=== PATIENT | female | born 1995 | race Caucasian/White ===

== ENCOUNTER 2018-06-11 12:19 | Emergency (ER) | payer OTHER ==
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
[2018-06-11 13:29] VITALS: BP 132/82
== END 2018-06-11 13:29 | disposition home or self-care (01) ==
DX: J34.89 Other specified disorders of nose and nasal sinuses (principal); M79.89 Other specified soft tissue disorders; W50.0XXA Accidental hit or strike by another person, initial encounter; Y92.811 Bus as the place of occurrence of the external cause